=== PATIENT | female | born 1970 | race American Indian/Alaskan Native ===

== ENCOUNTER 2018-08-07 08:42 | Day surgery (SDC) | payer BC ==
[~2018-08-07 08:42] MED LIST: NACL 0.9% 1000 ML 1,000 ML IV SCH
[2018-08-07] MEDS ORDERED: WATER FOR IRRIG STERILE IR ONE (09:27)
--- NOTE | 2018-08-07 09:30 | Anesthesia Consultation ---
Anesthesia Consult and Med Hx Date of service: 08/07/18 - Airway Anesthetic Teeth Evaluation: Good, Chipped (upper) ROM Head & Neck: Adequate Mental/Hyoid Distance: Adequate - Pre-Operative Health Status ASA Pre-Surgery Classification: ASA3 Proposed Anesthetic Plan: MAC - Pulmonary Hx Asthma: Yes - Cardiovascular System Hx Hypertension: Yes Hx Coronary Artery Disease: No (high cholesterol) - Endocrine Hx Hypothyroidism: Yes - Hematic Hx Anemia: Yes - Other Systems Hx Obesity: Yes (Morbid BMI 50.0)
--- NOTE | 2018-08-07 09:31 | Anesthesia Day of Surgery ---
Anesthesia Day of Surgery - Day of Surgery Patient Examined: Yes Patient H&P Reviewed: Yes Patient is NPO: Yes
[2018-08-07] MEDS ORDERED: DIPRIVAN 10 MG/ML IV ONE ×2 (09:37)
--- NOTE | 2018-08-07 10:02 | Short Stay Summary ---
Short Stay Documentation Date of service: 08/07/18 Narrative H&P: Patient presents for colonoscopy to evaluate diarrhea - History Past Medical History: diabetes, hypertension, other (morbid obesity, asthma) Past Surgical History: hysterectomy Social history: no significant social history, no smoking, no alcohol abuse - Allergies and Medications Current Medications: Allergies No Known Allergies Allergy (Verified 08/06/18 11:05) Home Medications Medication Instructions Recorded Confirmed Last Taken Type Advair Diskus 250-50 mcg 2 puff INHALATION DAILY 08/06/18 08/07/18 08/06/18 History Ibuprofen 800 mg PO PRN PRN 08/06/18 08/07/18 08/06/18 History Levothyroxine 25 mg PO DAILY 08/06/18 08/07/18 08/06/18 History Lisinopril/Hydrochlorothiazide 10 - 12.5 mg PO DAILY 08/06/18 08/06/18 08/07/18 03:30 History Montelukast 10 mg PO DAILY 08/06/18 08/07/18 08/06/18 History Pravastatin 80 mg PO DAILY 08/06/18 08/07/18 08/06/18 History ProAir HFA Inhaler 2 puff INHALATION PRN PRN 08/06/18 08/07/18 08/06/18 History Verapamil 180 mg PO DAILY 08/06/18 08/07/18 08/07/18 03:30 History Active Medications Sodium Chloride (Nacl 0.9% 1000 Ml) 1,000 mls @ 50 mls/hr IV DIRECT MCKENNA Last Admin: 08/07/18 08:45 Dose: 50 mls/hr Documented by: - Physical exam General appearance: no acute distress, well-nourished, obese Integumentary: no rash, no growths, no abnormal pigmentation HEENT: Atraumatic, PERRLA, EOMI, Mucous membr. moist/pink Lungs: Clear to auscultation, Normal air movement Breasts: deferred Heart: Regular rate, Normal S1, Normal S2, No murmurs Gastrointestinal: normoactive bowel sounds, no tenderness, no distended, no masses, no guarding, no organomegaly Female Genitourinary: deferred Rectal Exam: normal exam-external/orifice, normal rectal tone, no mass Extremities: no ischemia, pulses intact, pulses symmetrical, No edema, normal temperature, normal color, Full ROM Neurological: Normal gait, Normal speech, Strength at 5/5 X4 ext, Normal tone, Sensation intact, Cranial nerves 3-12 NL - Brief post op/procedure progress note Date of procedure: 08/07/18 Findings: see dictated report Estimated blood loss: none Pathology: none Condition: stable - Disposition Condition at discharge: Good - Discharge Diagnoses (1) Diarrhea Status: Acute Short Stay Discharge Plan Activity: other (no driving for 24 hours) Weight Bearing Status: Weight Bear as Tolerated Diet: diabetic Follow up with: DARRIUS SMART MD [Primary Care Provider] - 7 Days
--- NOTE | 2018-08-07 10:04 | Operative Report ---
Operative Report Operative Report: Date of procedure: 08/07/2018 Preprocedure diagnosis: Chronic diarrhea Post procedure diagnosis: Normal study Procedure: Colonoscopy to the cecum Endoscopist: Dr. Evangelista Anesthesia: Monitored anesthesia care per anesthesia department Estimated blood loss: 0 Medications: Monitored anesthesia care. See separate report by anesthesia for details. After careful discussion of the nature and purpose of the procedure as well as details of the technique risks benefits and alternatives the patient gave conse nt. Please see recent history and physical from the office. The patient was placed in the left lateral decubitus position and medicated per anesthesia. A rectal exam was performed sphincter tone was normal there were no masses palpable. The [employer] 570 scope was passed transanally and advanced under continuous direct vision without difficulty to the cecum. The colon was well prepared. The cecum was normal. The ascending colon was normal and on forward and retroflexed views. The transverse colon, descending colon, and sigmoid colon were normal. The rectum was normal on forward and retroflexed views. The procedure was well-tolerated overall and the patient was observed in recovery. Conclusions: Normal colonoscopy to the cecum. Plan: Repeat colonoscopy in 10 years. Office follow-up in 4-6 months. Further evaluation of diarrhea persists off of metformin. Signed electronically: Randolph Evangelista M.D.
[2018-08-07 11:32] VITALS: BP 126/81
== END 2018-08-07 08:43 | disposition home or self-care (01) ==
LOC: GIO 08:42
PROVIDERS: ATTEND Internal Medicine Gastroenterology
DX: K52.9 Noninfective gastroenteritis and colitis, unspecified (principal); I25.10 Atherosclerotic heart disease of native coronary artery without angina pectoris; I10 Essential (primary) hypertension; E78.00 Pure hypercholesterolemia, unspecified; J45.909 Unspecified asthma, uncomplicated; E66.9 Obesity, unspecified; Z68.43 Body mass index [BMI] 50.0-59.9, adult; Z90.710 Acquired absence of both cervix and uterus; Z79.899 Other long term (current) drug therapy; Z98.890 Other specified postprocedural states; Z86.2 Personal history of diseases of the blood and blood-forming organs and certain disorders involving the immune mechanism
CPT/HCPCS: 45378; 82962; J2704; J7030